=== PATIENT | female | born 1985 | race Caucasian/White ===

== ENCOUNTER 2023-09-30 04:00 | Day surgery (SDC) | payer OTHER ==
[~2023-09-30] VITALS: Ht 167.6 cm; Wt 66.5 kg
[2023-09-30] VITALS (251 sets, daily range): BP systolic 89–159; BP diastolic 44–96
[2023-09-30 08:12] LABS: BASO% 0.1 % (0-3); EOS% 3.5 % (0-8); HEMATOCRIT 34.5 % (37.0-47.0); HEMOGLOBIN 11.9 g/dl (12.0-16.0); IMMATURE GRANULOCYTES 0.1 % (0.0-5.0); LYMPH% 23.7 % (15-41); MEAN CELL VOLUME 90.6 fL CALC (80.0-100.0); MEAN CORPUSCULAR HGB 31.2 pG CALC (26.0-32.0); MEAN CORPUSCULAR HGB CONC 34.5 g/dL CAL (32.0-36.0); MONO% 8.5 % (2-13); NEUT# 4.71 thou/uL (2.00-7.15); NEUT% 64.1 % (42-76); RED BLOOD COUNT 3.81 mill/uL (4.20-5.60)
[2023-09-30 08:26] LABS: ALBUMIN 3.6 g/dL (3.2-5.0); ALKALINE PHOSPHATASE 83 u/l (38-126); ANION GAP 8 (6-22 (CALC)); BILIRUBIN, TOTAL 0.3 mg/dL (0.02-1.3); BUN 23 mg/dL (7-17); BUN/CREATININE RATIO 38 (12-20 (CALC)); CARBON DIOXIDE 30 mmol/l (22-30); CHLORIDE 106 mmol/l (95-108); CREATININE 0.6 mg/dL (0.5-1.0); GFR FOR AFR.AMER. > 60 ML/MIN (>=60 (CALC)); GFR OTHER RACES > 60 ML/MIN (>=60 (CALC)); POTASSIUM 3.8 mmol/l (3.5-5.1); SGOT/AST 37 u/l (14-36); SODIUM 140 mmol/l (137-146); TOTAL PROTEIN 5.8 g/dL (6.3-8.2)
[2023-09-30] MEDS ORDERED: ESTRA/NORETH1 TAB PO (08:47)
[2023-09-30] MEDS ORDERED: CLONIDINE0.1 MG PO (15:05)
[2023-09-30] MEDS ORDERED: NALTREXONE50 MG PO (15:05)
[2023-09-30] MEDS ORDERED: KLONOPIN2 MG PO (15:06)
[2023-10-01 03:58] VITALS: BP 133/95
[2023-10-01 04:51] LABS: BASO% 0.1 % (0-3); HEMATOCRIT 34.8 % (37.0-47.0); HEMOGLOBIN 12.7 g/dl (12.0-16.0); IMMATURE GRANULOCYTES 0.3 % (0.0-5.0); LYMPH% 9.3 % (15-41); MEAN CELL VOLUME 86.6 fL CALC (80.0-100.0); MEAN CORPUSCULAR HGB 31.6 pG CALC (26.0-32.0); MEAN CORPUSCULAR HGB CONC 36.5 g/dL CAL (32.0-36.0); MONO% 1.3 % (2-13); NEUT# 7.12 thou/uL (2.00-7.15); RED BLOOD COUNT 4.02 mill/uL (4.20-5.60); RED CELL DISTRI WIDTH 11.6 % (11.5-15.5)
[2023-10-01 04:58] LABS: ALBUMIN 3.6 g/dL (3.2-5.0); ALKALINE PHOSPHATASE 81 u/l (38-126); BUN 14 mg/dL (7-17); BUN/CREATININE RATIO 28 (12-20 (CALC)); CHLORIDE 103 mmol/l (95-108); CREATININE 0.5 mg/dL (0.5-1.0); GFR FOR AFR.AMER. > 60 ML/MIN (>=60 (CALC)); GFR OTHER RACES > 60 ML/MIN (>=60 (CALC)); MAGNESIUM 2.1 mg/dL (1.6-2.3); POTASSIUM 3.6 mmol/l (3.5-5.1); SGOT/AST 43 u/l (14-36); SODIUM 133 mmol/l (137-146); TOTAL PROTEIN 5.8 g/dL (6.3-8.2)
[2023-10-01 05:02] LABS: ANION GAP 12 (6-22 (CALC)); BILIRUBIN, TOTAL 0.7 mg/dL (0.02-1.3); CARBON DIOXIDE 22 mmol/l (22-30)
[2023-10-01 07:26] VITALS: BP 118/83
[2023-10-01 07:52] VITALS: BP 118/83
== END 2023-10-01 16:04 | disposition home or self-care (01) | DRG 897 ==
LOC: ANR 04:00 → EDBD 04:00 → MS2 04:00 → ANR 07:00 → MS2 17:35 → ANR 10-01 16:04
PROVIDERS: ATTEND Anesthesiology Critical Care Medicine
DX: F11.20 Opioid dependence, uncomplicated (principal)
CPT/HCPCS: J0131; J2354; J3475